=== PATIENT | female | born 1995 | race African-American/Black ===

== ENCOUNTER 2020-05-25 10:04 | Day surgery (SDC) | payer BC ==
[2020-05-17 11:52] VITALS: BMI 22.1
[2020-05-25 10:25] VITALS: BP 106/70; PULSE 76; TEMP 98.1
[2020-05-25] MEDS ORDERED: PROPOFOL 20 ML ONE ×3 (11:17)
== END 2020-05-25 12:00 | disposition home or self-care (01) ==
LOC: FASU-ENDO 10:04
PROVIDERS: ATTEND Internal Medicine Gastroenterology
PROC: 0DJD8ZZ Inspection of Lower Intestinal Tract, Via Natural or Artificial Opening Endoscopic (ICD-10-PCS; principal; 2020-05-25)
DX: Z13.811 Encounter for screening for lower gastrointestinal disorder (principal); Z53.29 Procedure and treatment not carried out because of patient's decision for other reasons
CPT/HCPCS: 84703